=== PATIENT | male | born 1960 | race Caucasian/White ===

== ENCOUNTER 2020-10-14 20:16 | Emergency (ER) | payer BC ==
[2020-10-15 02:37] LABS: HEMOGLOBIN 14.9 gm/dl (14.0-17.5); RED BLOOD COUNT 4.53 M/UL (4.20-5.50); WHITE BLOOD COUNT 11.9 K/UL (4.5-11.0)
[2020-10-15 03:28] LABS: BUN/CREATININE RATIO 34 (0-10)
[2020-10-15] MEDS ORDERED: HYDROCODON-ACE1 EAC4 PO (03:56)
== END 2020-10-15 04:08 | disposition home or self-care (01) ==
LOC: ER1 20:16
PROVIDERS: Physician Assistant Medical
DX: M25.511 Pain in right shoulder (principal); M54.2 Cervicalgia; E11.9 Type 2 diabetes mellitus without complications; E78.5 Hyperlipidemia, unspecified; I10 Essential (primary) hypertension
CPT/HCPCS: 72125; 73030; 80053; 84484; 85025; 93005; 99284

== ENCOUNTER 2020-10-18 11:33 | Emergency (ER) | payer BC ==
[~2020-10-18 11:33] MED LIST: HYDROCODON-ACE1 EAC4 PO
[2020-10-18] MEDS ORDERED: CYCLOBENZAPRINE10 MG PO (12:23)
== END 2020-10-18 12:37 | disposition home or self-care (01) ==
LOC: ER1 11:33
DX: M25.511 Pain in right shoulder (principal); E11.9 Type 2 diabetes mellitus without complications; I10 Essential (primary) hypertension
CPT/HCPCS: 96372; 99283; J1885